=== PATIENT | male | born 1975 | race Caucasian/White ===

== ENCOUNTER 2017-05-21 19:14 | Emergency (ER) | payer SELFPAY ==
[~2017-05-21] VITALS: Ht 188 cm; Wt 105.0 kg
[2017-05-21 19:18] VITALS: BP 141/89
[2017-05-21] MEDS ORDERED: KETOROLAC 30 MG/1 ML IM ONE (19:30)
[2017-05-21] MEDS ORDERED: IBUPROFEN 200 MG TABLET PO ONE (20:00)
[2017-05-21] MEDS ORDERED: PLEASE ENTER ALLERGIES MC SCH ×2 (20:00)
[2017-05-21] MEDS ORDERED: IBUPROFEN 200 MG TABLET ONE (20:37)
== END 2017-05-21 21:02 | disposition home or self-care (01) ==
LOC: ED 21:00
DX: S23.3XXA Sprain of ligaments of thoracic spine, initial encounter (principal); S16.1XXA Strain of muscle, fascia and tendon at neck level, initial encounter; V89.2XXA Person injured in unspecified motor-vehicle accident, traffic, initial encounter; Y93.89 Activity, other specified; Y92.410 Unspecified street and highway as the place of occurrence of the external cause; Y99.8 Other external cause status
CPT/HCPCS: 72020; 72050; 72072; 72110; 99284